=== PATIENT | female | born 1960 | race African-American/Black ===

== ENCOUNTER 2018-09-06 16:05 | Emergency (ER) | payer OTHER ==
[~2018-09-06] VITALS: Ht 152.4 cm; Wt 72.6 kg
[2018-09-06] MEDS ORDERED: WARFARIN SOD5 MG PO (16:22)
[2018-09-06] MEDS ORDERED: NORVASC5 MG PO (16:23)
[2018-09-06 16:47] LABS: BASO # 0.1 10*3/uL (0.0-0.1); BASO % 0.6 % (0.0-1.0); EOS # 0.1 10*3/uL (0.0-0.4); EOS % 0.9 % (1.0-4.0); HEMATOCRIT 41.1 % (37.0-47.0); HEMOGLOBIN 13.7 g/dl (12.0-16.0); LYMPH # 1.6 10*3/uL (1.3-4.4); LYMPH % 18.1 % (27.0-41.0); MEAN CELL VOLUME 87.6 fl (81.0-99.0); MEAN CORPUSCULAR HGB 29.2 pg (27.0-31.0); MEAN CORPUSCULAR HGB CONC 33.3 g/dl (33.0-37.0); MEAN PLATELET VOLUME 9.8 fl (9.6-12.3); MONO # 0.4 10*3/uL (0.1-1.0); NEUT # 6.4 10*3/uL (2.3-7.9); PLATELET COUNT AUTOMATED 239 10*3/uL (130-400); RED BLOOD COUNT 4.69 10*6/uL (4.10-5.10); RED CELL DISTRI WIDTH 13.5 % (0-14.5); WHITE BLOOD COUNT 8.6 10*3/uL (4.8-10.8)
[2018-09-06 17:02] LABS: ALBUMIN 3.7 gm/dl (3.1-4.5); ALKALINE PHOSPHATASE 80 U/L (45-117); BUN 11 mg/dl (7-24); CHLORIDE 110 mmol/L (98-107); CREATININE 1.07 mg/dL (0.55-1.02); LIPASE 82 U/L (73-393); POTASSIUM 3.4 mmol/L (3.5-5.1); SGOT/AST 33 IU/L (3-35); SGPT/ALT 30 U/L (12-78); SODIUM 143 mmol/L (136-145); TOTAL PROTEIN 7.6 gm/dL (6.4-8.2)
[2018-09-06 17:30] LABS: BILIRUBIN 1+ (NEGATIVE); BLOOD 3+ (NEGATIVE); CLARITY SL CLOUDY (CLEAR); COLOR YELLOW (YELLOW); GLUCOSE NEGATIVE (NEGATIVE); KETONE NEGATIVE (NEGATIVE); LEUKO ESTERASE TRACE (NEGATIVE); NITRITE NEGATIVE (NEGATIVE); PH 5.5 (5.0-9.0); SPECIFIC GRAVITY >= 1.030 (1.005-1.030)
[2018-09-06 17:41] LABS: BACTERIA 1+; MUCOUS 1+
[2018-09-06 17:42] LABS: CALCIUM OXALATE CRYSTALS 1+; RBC 41-50 rbc/hpf (0-2)
[2018-09-06] MEDS ORDERED: ZOFRAN ODT4 MG SL (17:51)
[2018-09-06] MEDS ORDERED: DICYCLOMINE HCL20 MG PO (17:51)
== END 2018-09-06 17:53 | disposition home or self-care (01) ==
LOC: ED 16:05
PROVIDERS: Nurse Practitioner Family
DX: K82.8 Other specified diseases of gallbladder (principal); K80.50 Calculus of bile duct without cholangitis or cholecystitis without obstruction; R79.1 Abnormal coagulation profile; Z79.01 Long term (current) use of anticoagulants; Z79.899 Other long term (current) drug therapy

== ENCOUNTER → 2018-09-08 | Outpatient (CLI) | payer OTHER ==
[~2018-09-08] MED LIST: AUGMENTIN 875875 MG PO; DICYCLOMINE HCL20 MG PO; ENOXAPARIN80 MG/0.2 SC; NORCO 5-325 TA1 EACH PO; NORVASC5 MG PO; TRAMADOL HCL50 MG PO; VICODIN 5-3001 EACH PO; VITAMIN D-32000 UNIT PO; WARFARIN SOD5 MG PO; ZOFRAN ODT4 MG SL
== END | disposition home or self-care (01) ==
LOC: RESCLI 03:30
DX: I10 Essential (primary) hypertension (principal); E66.9 Obesity, unspecified; K82.8 Other specified diseases of gallbladder; D68.8 Other specified coagulation defects; N28.1 Cyst of kidney, acquired; R11.2 Nausea with vomiting, unspecified; R92.8 Other abnormal and inconclusive findings on diagnostic imaging of breast; Z76.89 Persons encountering health services in other specified circumstances; Z79.01 Long term (current) use of anticoagulants; Z88.2 Allergy status to sulfonamides

== ENCOUNTER 2018-09-10 04:34 | Inpatient (IN) | payer OTHER ==
[2018-09-10] VITALS (8 sets, daily range): BP systolic 124–171; BP diastolic 56–89
[~2018-09-10] VITALS: Ht 152.4 cm; Wt 75.9 kg
[~2018-09-10 04:34] MED LIST changes: -AUGMENTIN 875875 MG PO; -ENOXAPARIN80 MG/0.2 SC; -NORCO 5-325 TA1 EACH PO; -TRAMADOL HCL50 MG PO; -VICODIN 5-3001 EACH PO; -VITAMIN D-32000 UNIT PO
[2018-09-10 05:10] LABS: BASO % 0.4 % (0.0-1.0); EOS % 0.4 % (1.0-4.0); HEMOGLOBIN 13.5 g/dl (12.0-16.0); LYMPH # 1.2 10*3/uL (1.3-4.4); LYMPH % 13.3 % (27.0-41.0); MEAN CORPUSCULAR HGB CONC 32.9 g/dl (33.0-37.0); MEAN PLATELET VOLUME 9.8 fl (9.6-12.3); MONO # 0.4 10*3/uL (0.1-1.0); MONO % 4.6 % (3.0-9.0); NEUT # 7.2 10*3/uL (2.3-7.9); NEUT % 81.1 % (47.0-73.0); PLATELET COUNT AUTOMATED 230 10*3/uL (130-400); RED BLOOD COUNT 4.66 10*6/uL (4.10-5.10); RED CELL DISTRI WIDTH 13.2 % (0-14.5); WHITE BLOOD COUNT 8.9 10*3/uL (4.8-10.8)
[2018-09-10 05:19] LABS: INTERNATIONAL NORM RATIO 1.8 (2.0-3.5)
[2018-09-10 05:27] LABS: ALBUMIN 3.5 gm/dl (3.1-4.5); ALKALINE PHOSPHATASE 73 U/L (45-117); BUN 7 mg/dl (7-24); CHLORIDE 108 mmol/L (98-107); CREATININE 0.79 mg/dL (0.55-1.02); LIPASE 69 U/L (73-393); POTASSIUM 3.7 mmol/L (3.5-5.1); SGOT/AST 14 IU/L (3-35); SGPT/ALT 20 U/L (12-78); SODIUM 142 mmol/L (136-145); TOTAL PROTEIN 7.3 gm/dL (6.4-8.2)
[2018-09-11] VITALS: BP 119/65
[2018-09-11 06:22] LABS: BASO % 0.3 % (0.0-1.0); EOS # 0.1 10*3/uL (0.0-0.4); EOS % 1.2 % (1.0-4.0); HEMATOCRIT 41.2 % (37.0-47.0); HEMOGLOBIN 13.7 g/dl (12.0-16.0); LYMPH # 2.1 10*3/uL (1.3-4.4); LYMPH % 23.9 % (27.0-41.0); MEAN CELL VOLUME 87.1 fl (81.0-99.0); MEAN CORPUSCULAR HGB CONC 33.3 g/dl (33.0-37.0); MONO # 0.5 10*3/uL (0.1-1.0); MONO % 5.6 % (3.0-9.0); NEUT # 6.2 10*3/uL (2.3-7.9); NEUT % 68.7 % (47.0-73.0); PLATELET COUNT AUTOMATED 241 10*3/uL (130-400); RED BLOOD COUNT 4.73 10*6/uL (4.10-5.10); RED CELL DISTRI WIDTH 13.2 % (0-14.5)
[2018-09-11 06:47] LABS: INTERNATIONAL NORM RATIO 2.4 (2.0-3.5)
[2018-09-11 06:49] LABS: ALBUMIN 3.5 gm/dl (3.1-4.5); BUN 11 mg/dl (7-24); CHLORIDE 107 mmol/L (98-107); CHOLESTEROL 132 mg/dL (<200); CREATININE 0.89 mg/dL (0.55-1.02); PHOSPHOROUS 2.9 mg/dL (2.5-4.9); POTASSIUM 3.6 mmol/L (3.5-5.1); SGOT/AST 18 IU/L (3-35); SGPT/ALT 20 U/L (12-78); SODIUM 139 mmol/L (136-145); TRIGLYCERIDES 101 mg/dl (<150); VLDL CHOLESTEROL 20 mg/dL (6-40)
[2018-09-11 06:56] LABS: ALKALINE PHOSPHATASE 77 U/L (45-117); FREE T4 1.27 ng/dl (0.76-1.46); HDL CHOLESTEROL 44 mg/dl (40-60); LDL CHOLESTEROL 68 mg/dL (9-159)
[2018-09-11 08:00] VITALS: BP 170/78
[2018-09-11] MEDS ORDERED: VICODIN 5-3001 EACH PO (11:12)
[2018-09-11] MEDS ORDERED: AUGMENTIN 875875 MG PO (11:12)
[2018-09-11] MEDS ORDERED: NORCO 5-325 TA1 EACH PO (13:55)
== END 2018-09-11 13:02 | disposition home or self-care (01) | DRG 445 ==
LOC: ED 04:34 → EDHOLD 06:42 → 4E 06:42
PROVIDERS: Family Medicine; Student in an Organized Health Care Education/Training Program
DX: K80.12 Calculus of gallbladder with acute and chronic cholecystitis without obstruction (principal); D68.52 Prothrombin gene mutation; I10 Essential (primary) hypertension; D72.828 Other elevated white blood cell count; R73.9 Hyperglycemia, unspecified; Z82.0 Family history of epilepsy and other diseases of the nervous system; Z79.01 Long term (current) use of anticoagulants; Z79.899 Other long term (current) drug therapy

== ENCOUNTER → 2018-09-14 | Outpatient (CLI) | payer OTHER ==
[~2018-09-14] MED LIST changes: +AUGMENTIN 875875 MG PO; +ENOXAPARIN80 MG/0.2 SC; +NORCO 5-325 TA1 EACH PO; +TRAMADOL HCL50 MG PO; +VICODIN 5-3001 EACH PO; +VITAMIN D-32000 UNIT PO
== END | disposition home or self-care (01) ==
LOC: NM 07:00
DX: K80.80 Other cholelithiasis without obstruction (principal); N28.1 Cyst of kidney, acquired; R11.2 Nausea with vomiting, unspecified; R92.8 Other abnormal and inconclusive findings on diagnostic imaging of breast

== ENCOUNTER → 2018-09-15 | Outpatient (CLI) | payer OTHER ==
[2018-09-15 13:11] LABS: INTERNATIONAL NORM RATIO 2.7 (2.0-3.5)
== END | disposition home or self-care (01) ==
LOC: LAB 12:13
PROVIDERS: Internal Medicine
DX: Z79.01 Long term (current) use of anticoagulants (principal)

== ENCOUNTER → 2018-09-26 | Outpatient (CLI) | payer OTHER | END | disposition home or self-care (01) | LOC: MAMMO 09-22 09:30 → US 09-22 13:00 → MAMMO 10:00 | DX: N28.1 Cyst of kidney, acquired (principal); N32.89 Other specified disorders of bladder ==

== ENCOUNTER 2018-09-28 05:40 | Inpatient (IN) | payer OTHER ==
[~2018-09-28] VITALS: Ht 152.4 cm; Wt 74.0 kg
--- NOTE | ~2018-09-28 | O ---
[place], [place] OPERATIVE NOTE NAME: MARIN WATTS UNIT #: [id number] ROOM: 412 DOCTOR: MARCO MONTERO MD BIRTHDATE: [birth year] DOS: 09/29/2018 PREOPERATIVE DIAGNOSIS: Symptomatic gallstones. POSTOPERATIVE DIAGNOSIS: Acute cholecystitis. PROCEDURE: Laparoscopic turned open cholecystectomy. SURGEON: Marco Montero MD. HOSPITAL TRAY SERVICE WORKER: TOBY. ANESTHESIA: General with endotracheal intubation. INDICATIONS: This is a 57-year-old lady who is here for a laparoscopic possible open cholecystectomy. The patient has symptomatic gallstones and was admitted a few months ago for acute cholecystitis. 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 The patient was admitted 1 day prior to surgery for bridging therapy. The procedure and its complications were explained to the patient in detail preoperatively. Complications that were discussed included, but were not limited to bleeding, infection, hematoma/seroma/abscess formation, prolonged postoperative pain, damage to lying vital structures, inadvertent injury to common bile duct, biloma formation and incisional hernia formation, she agreed to proceed. DESCRIPTION OF PROCEDURE: After identifying the patient, the patient was brought to the operating suite and laid in the supine position. After induction of general anesthesia, the parts were then painted and draped in the usual sterile fashion. A subumbilical incision in a transverse fashion was made. The skin and the subcutaneous tissue were incised in the line of the incision. The fascia was incised vertically and 2 stay sutures were taken on either side. The peritoneum was opened and a 12 mm Joanie port was introduced. Pneumoperitoneum was created. Under direct vision, an epigastric incision of 10 mm and two 5 mm incisions were made in the right upper quadrant and appropriate size ports were introduced. The gallbladder was found to be acutely inflamed and distended. Approximately, 30-40 mL of clear fluid was aspirated from the bile with the help of an aspiration needle. After the gallbladder was decompressed, it was retracted superiorly and laterally. There were a lot of chronic adhesions that were from the omentum and the surrounding structures from the gallbladder itself. The cystic duct and the cystic artery were carefully dissected until the critical view of safety was obtained. The cystic duct was clipped 3 times and cut between the first and the second clip. The cystic artery also was clipped 3 times and cut between the first and the second clip. The gallbladder was then removed from the bed of the gallbladder with the help of electrocautery. During the procedure of the removal, there was additional bleeding that was identified proximal to the area of the cystic artery that was clipped and cut prior to removal of the gallbladder from its gallbladder bed. Because of the acute inflammation around the gallbladder, an accurate assessment of the bleeding and the source could not be made and therefore, the procedure was turned to an open procedure. An incision was made in a subcostal manner [place], [place] OPERATIVE NOTE NAME: MARIN WATTS UNIT #: [id number] ROOM: [employer] DOCTOR: MARCO MONTERO MD BIRTHDATE: [birth year] which connected the epigastric incision to the rest of the incision that was made. It was deep in the layers until the peritoneum was opened. The liver bed was packed with the help of laparotomy pads and a Benicia retractor was placed for adequate retraction and visualization. Once the packs were removed, the bleeding source was identified and it was clamped and tied with the help of 3-0 Vicryl. At this point, the rest of the gallbladder was removed from the bed of the gallbladder and sent for histopathological diagnosis. During the procedure removal of the gallbladder, the clips that were placed on the cystic duct inadvertently fell off and therefore, the cystic duct opening was suture ligated with the help of 3-0 silk in a [id number] interrupted fashion. After adequate closure of the cystic duct opening was performed, hemostasis was confirmed again and copious amounts of saline was used for irrigation. Thereafter, the 15-Armenian round Frank-Parrish drain was brought in and placed in the liver bed and sutured to the overlying skin with the help of 3-0 nylon in an interrupted fashion. At this point, the subcostal incision was approximated with the help of looped PDS in a running fashion. The skin edges were approximated with the help of diego. The subumbilical incision that was made for the laparoscopic procedure was also approximated. This was first done by approximating the stay sutures and the skin edges were then approximated with the help of diego. At the end of the procedure, the patient received a block by the anesthesia team for pain control. She was then extubated uneventfully and brought back to the recovery room in stable fashion. Blood loss was 600 mL. There were no complications. Dr. Marco Montero, the attending surgeon, was present throughout the operating case. Marco Monteor MD CM:OPRECORD:OPERATIVE NOTE [id number] MARCO MONTERO MD 09/29/18 1304 interface
--- NOTE | ~2018-09-28 | EKG ---
[place], [place] ELECTROCARDIOGRAM REPORT NAME: MARIN WATTS UNIT #: [id number] ROOM: 412 DOCTOR: ABDIEL DRAFT REPORT BIRTHDATE: [birth year] [facility] Test Date: 2018-09-28 Test Time: 08:10:21 Pat Name: MARIN WATTS Department: Room: 412 2 Gender: F Steam Drier Tender: Michelle Bower : 1960 Requested By: CHUCKY STILL Order Number: [id number] Reading MD: Farooq Askew MD Measurements Intervals Glendo Rate: 74 P: 45 MO: 134 QRS: -27 QRSD: 83 T: 13 QT: 390 QTc: 433 Interpretive Statements Sinus rhythm Borderline left axis deviation Abnormal R-wave progression, early transition Electronically Signed On 09-28-2018 17:19:04 PDT by Farooq Askew MD CM:EKGRPT:ELECTROCARDIOGRAM REPORT [id number] CHUCKY PATTERSON DRAFT REPORT CHUCKY STILL DO
[~2018-09-28 05:40] MED LIST changes: -ENOXAPARIN80 MG/0.2 SC; -TRAMADOL HCL50 MG PO; -VITAMIN D-32000 UNIT PO
[2018-09-28 06:00] VITALS: BP 146/77
[2018-09-28 06:29] LABS: BASO # 0.1 10*3/uL (0.0-0.1); BASO % 0.7 % (0.0-1.0); EOS # 0.2 10*3/uL (0.0-0.4); EOS % 2.1 % (1.0-4.0); HEMATOCRIT 41.2 % (37.0-47.0); HEMOGLOBIN 13.6 g/dl (12.0-16.0); LYMPH # 1.8 10*3/uL (1.3-4.4); LYMPH % 24.3 % (27.0-41.0); MEAN CELL VOLUME 87.8 fl (81.0-99.0); MEAN PLATELET VOLUME 9.8 fl (9.6-12.3); MONO # 0.5 10*3/uL (0.1-1.0); MONO % 6.6 % (3.0-9.0); NEUT # 4.8 10*3/uL (2.3-7.9); PLATELET COUNT AUTOMATED 251 10*3/uL (130-400); RED BLOOD COUNT 4.69 10*6/uL (4.10-5.10); RED CELL DISTRI WIDTH 13.1 % (0-14.5); WHITE BLOOD COUNT 7.3 10*3/uL (4.8-10.8)
[2018-09-28 06:48] LABS: ACT PARTIAL THROMBO TIME 43.1 SECONDS (20.8-31.5); INTERNATIONAL NORM RATIO 3.5 (2.0-3.5)
[2018-09-28 06:50] LABS: ALBUMIN 3.6 gm/dl (3.1-4.5); ALKALINE PHOSPHATASE 90 U/L (45-117); BUN 10 mg/dl (7-24); CHLORIDE 106 mmol/L (98-107); CREATININE 0.95 mg/dL (0.55-1.02); PHOSPHOROUS 3.2 mg/dL (2.5-4.9); POTASSIUM 3.9 mmol/L (3.5-5.1); SGOT/AST 12 IU/L (3-35); SGPT/ALT 16 U/L (12-78); SODIUM 138 mmol/L (136-145); TOTAL PROTEIN 7.2 gm/dL (6.4-8.2)
[2018-09-28 08:00] VITALS: BP 120/72
[2018-09-28 12:00] VITALS: BP 122/67
[2018-09-28 16:00] VITALS: BP 133/65
[2018-09-28 19:22] LABS: INTERNATIONAL NORM RATIO 1.3 (2.0-3.5)
[2018-09-28 20:00] VITALS: BP 135/68
[2018-09-29] VITALS (9 sets, daily range): BP systolic 125–149; BP diastolic 56–80
[2018-09-29 06:32] LABS: BASO # 0.1 10*3/uL (0.0-0.1); BASO % 0.7 % (0.0-1.0); EOS # 0.1 10*3/uL (0.0-0.4); EOS % 1.9 % (1.0-4.0); HEMATOCRIT 40.5 % (37.0-47.0); LYMPH # 2.3 10*3/uL (1.3-4.4); LYMPH % 32.5 % (27.0-41.0); MEAN CORPUSCULAR HGB 28.6 pg (27.0-31.0); MEAN CORPUSCULAR HGB CONC 32.1 g/dl (33.0-37.0); MONO # 0.5 10*3/uL (0.1-1.0); MONO % 7.4 % (3.0-9.0); NEUT % 57.1 % (47.0-73.0); PLATELET COUNT AUTOMATED 239 10*3/uL (130-400); RED BLOOD COUNT 4.55 10*6/uL (4.10-5.10); RED CELL DISTRI WIDTH 13.2 % (0-14.5)
[2018-09-29 07:01] LABS: ALBUMIN 3.4 gm/dl (3.1-4.5); BUN 11 mg/dl (7-24); CHLORIDE 108 mmol/L (98-107); CREATININE 0.91 mg/dL (0.55-1.02); SGOT/AST 10 IU/L (3-35); SGPT/ALT 14 U/L (12-78); SODIUM 140 mmol/L (136-145)
[2018-09-29 07:02] LABS: ALKALINE PHOSPHATASE 84 U/L (45-117); TOTAL PROTEIN 6.8 gm/dL (6.4-8.2)
[2018-09-29 07:14] LABS: ACT PARTIAL THROMBO TIME 26.3 SECONDS (20.8-31.5)
[2018-09-29 10:53] LABS: HEMOGLOBIN 11.6 g/dl (12.0-16.0)
[2018-09-29 13:10] LABS: HEMATOCRIT 37.7 % (37.0-47.0); HEMOGLOBIN 12.4 g/dl (12.0-16.0); MEAN CELL VOLUME 89.3 fl (81.0-99.0); MEAN CORPUSCULAR HGB 29.4 pg (27.0-31.0); MEAN CORPUSCULAR HGB CONC 32.9 g/dl (33.0-37.0); MEAN PLATELET VOLUME 9.6 fl (9.6-12.3); PLATELET COUNT AUTOMATED 231 10*3/uL (130-400); RED BLOOD COUNT 4.22 10*6/uL (4.10-5.10); RED CELL DISTRI WIDTH 13.2 % (0-14.5); WHITE BLOOD COUNT 17.8 10*3/uL (4.8-10.8)
[2018-09-29 13:34] LABS: PLATELET SUFFICIENCY NORMAL (NORMAL); TOTAL CELLS COUNTED 100 #CELLS
[2018-09-29 13:36] LABS: ALBUMIN 3.1 gm/dl (3.1-4.5); ALKALINE PHOSPHATASE 81 U/L (45-117); BUN 11 mg/dl (7-24); CHLORIDE 108 mmol/L (98-107); CREATININE 1.12 mg/dL (0.55-1.02); POTASSIUM 3.7 mmol/L (3.5-5.1); SGOT/AST 69 IU/L (3-35); SGPT/ALT 40 U/L (12-78); SODIUM 139 mmol/L (136-145); TOTAL PROTEIN 6.3 gm/dL (6.4-8.2)
[2018-09-30] VITALS: BP 136/66
[2018-09-30 06:16] LABS: BASO % 0.1 % (0.0-1.0); HEMATOCRIT 33.1 % (37.0-47.0); LYMPH # 1.7 10*3/uL (1.3-4.4); LYMPH % 9.5 % (27.0-41.0); MEAN CORPUSCULAR HGB 29.3 pg (27.0-31.0); MEAN CORPUSCULAR HGB CONC 33.2 g/dl (33.0-37.0); MONO % 5.8 % (3.0-9.0); NEUT # 14.5 10*3/uL (2.3-7.9); NEUT % 83.8 % (47.0-73.0); PLATELET COUNT AUTOMATED 241 10*3/uL (130-400); RED BLOOD COUNT 3.76 10*6/uL (4.10-5.10); RED CELL DISTRI WIDTH 13.1 % (0-14.5); WHITE BLOOD COUNT 17.3 10*3/uL (4.8-10.8)
[2018-09-30 06:35] LABS: ALKALINE PHOSPHATASE 72 U/L (45-117); BUN 10 mg/dl (7-24); CHLORIDE 108 mmol/L (98-107); POTASSIUM 4.1 mmol/L (3.5-5.1); SGOT/AST 40 IU/L (3-35); SGPT/ALT 29 U/L (12-78); SODIUM 139 mmol/L (136-145); TOTAL PROTEIN 6.2 gm/dL (6.4-8.2)
[2018-09-30 06:41] LABS: INTERNATIONAL NORM RATIO 0.9 (2.0-3.5)
[2018-09-30 08:00] VITALS: BP 132/72
[2018-09-30 12:00] VITALS: BP 145/72
[2018-09-30 16:00] VITALS: BP 125/70
[2018-09-30 20:00] VITALS: BP 143/68
[2018-10-01] VITALS: BP 130/68
[2018-10-01 06:46] LABS: BASO # 0.1 10*3/uL (0.0-0.1); BASO % 0.5 % (0.0-1.0); EOS % 0.2 % (1.0-4.0); HEMATOCRIT 33.3 % (37.0-47.0); HEMOGLOBIN 10.8 g/dl (12.0-16.0); LYMPH # 1.9 10*3/uL (1.3-4.4); LYMPH % 17.6 % (27.0-41.0); MEAN CELL VOLUME 88.6 fl (81.0-99.0); MEAN CORPUSCULAR HGB 28.7 pg (27.0-31.0); MEAN CORPUSCULAR HGB CONC 32.4 g/dl (33.0-37.0); MEAN PLATELET VOLUME 10.3 fl (9.6-12.3); MONO # 0.8 10*3/uL (0.1-1.0); MONO % 7.4 % (3.0-9.0); NEUT # 7.8 10*3/uL (2.3-7.9); PLATELET COUNT AUTOMATED 211 10*3/uL (130-400); RED BLOOD COUNT 3.76 10*6/uL (4.10-5.10); RED CELL DISTRI WIDTH 13.2 % (0-14.5); WHITE BLOOD COUNT 10.6 10*3/uL (4.8-10.8)
[2018-10-01 06:53] LABS: INTERNATIONAL NORM RATIO 0.9 (2.0-3.5)
[2018-10-01 07:07] LABS: ALKALINE PHOSPHATASE 70 U/L (45-117); BUN 8 mg/dl (7-24); CHLORIDE 104 mmol/L (98-107); CREATININE 0.75 mg/dL (0.55-1.02); POTASSIUM 3.8 mmol/L (3.5-5.1); SGOT/AST 26 IU/L (3-35); SGPT/ALT 27 U/L (12-78); SODIUM 137 mmol/L (136-145); TOTAL PROTEIN 6.6 gm/dL (6.4-8.2)
[2018-10-01 12:00] VITALS: BP 139/68
[2018-10-01 16:00] VITALS: BP 125/68
[2018-10-01 20:00] VITALS: BP 119/60
[2018-10-02] VITALS: BP 139/63
[2018-10-02 12:00] VITALS: BP 121/67
[2018-10-02 16:00] VITALS: BP 139/77
[2018-10-02 20:00] VITALS: BP 133/72
[2018-10-03] VITALS: BP 125/67
[2018-10-03 06:33] LABS: INTERNATIONAL NORM RATIO 1.3 (2.0-3.5)
[2018-10-03 12:00] VITALS: BP 128/72
[2018-10-03 16:00] VITALS: BP 128/63
[2018-10-03 20:00] VITALS: BP 122/55
[2018-10-04] VITALS: BP 110/54
[2018-10-04 07:02] LABS: BASO % 0.4 % (0.0-1.0); EOS # 0.1 10*3/uL (0.0-0.4); EOS % 0.9 % (1.0-4.0); HEMATOCRIT 31.7 % (37.0-47.0); HEMOGLOBIN 10.3 g/dl (12.0-16.0); LYMPH # 1.7 10*3/uL (1.3-4.4); LYMPH % 18.6 % (27.0-41.0); MEAN CELL VOLUME 87.6 fl (81.0-99.0); MEAN CORPUSCULAR HGB 28.5 pg (27.0-31.0); MEAN CORPUSCULAR HGB CONC 32.5 g/dl (33.0-37.0); MEAN PLATELET VOLUME 9.7 fl (9.6-12.3); MONO # 0.6 10*3/uL (0.1-1.0); MONO % 7.2 % (3.0-9.0); NEUT # 6.5 10*3/uL (2.3-7.9); NEUT % 72.3 % (47.0-73.0); PLATELET COUNT AUTOMATED 222 10*3/uL (130-400); RED BLOOD COUNT 3.62 10*6/uL (4.10-5.10); RED CELL DISTRI WIDTH 13.2 % (0-14.5); WHITE BLOOD COUNT 8.9 10*3/uL (4.8-10.8)
[2018-10-04 07:14] LABS: INTERNATIONAL NORM RATIO 1.7 (2.0-3.5)
[2018-10-04 07:36] LABS: CREATININE 0.78 mg/dL (0.55-1.02)
[2018-10-04 08:00] VITALS: BP 120/55
[2018-10-04 12:00] VITALS: BP 121/51
[2018-10-04] MEDS ORDERED: VITAMIN D-32000 UNIT PO (13:38)
[2018-10-04] MEDS ORDERED: ENOXAPARIN80 MG/0.2 SC (13:44)
[2018-10-04 16:00] VITALS: BP 120/55
[2018-10-04] MEDS ORDERED: TRAMADOL HCL50 MG PO ×2 (17:44→17:47)
== END 2018-10-04 18:17 | disposition home health service (06) | DRG 415 ==
LOC: 4E 05:40
PROVIDERS: Internal Medicine; Internal Medicine Nephrology; Surgery
PROC: 0FT40ZZ Resection of Gallbladder, Open Approach (ICD-10-PCS; principal; 2018-09-29)
PROC: 0FJ44ZZ Inspection of Gallbladder, Percutaneous Endoscopic Approach (ICD-10-PCS; principal; 2018-09-29)
DX: K80.00 Calculus of gallbladder with acute cholecystitis without obstruction (principal); D68.52 Prothrombin gene mutation; E44.0 Moderate protein-calorie malnutrition; D68.59 Other primary thrombophilia; E66.1 Drug-induced obesity; I10 Essential (primary) hypertension; F17.210 Nicotine dependence, cigarettes, uncomplicated; E55.9 Vitamin D deficiency, unspecified; Z71.6 Tobacco abuse counseling; Z79.01 Long term (current) use of anticoagulants; Z79.899 Other long term (current) drug therapy; Z68.30 Body mass index [BMI] 30.0-30.9, adult; Z86.718 Personal history of other venous thrombosis and embolism; Z82.49 Family history of ischemic heart disease and other diseases of the circulatory system; Z82.0 Family history of epilepsy and other diseases of the nervous system; Z83.2 Family history of diseases of the blood and blood-forming organs and certain disorders involving the immune mechanism; Z88.2 Allergy status to sulfonamides

== ENCOUNTER → 2018-10-05 | Outpatient (CLI) | payer OTHER ==
[~2018-10-05] MED LIST changes: +ENOXAPARIN80 MG/0.2 SC; +TRAMADOL HCL50 MG PO; +VITAMIN D-32000 UNIT PO
[2018-10-05 12:25] LABS: INTERNATIONAL NORM RATIO 2.4 (2.0-3.5)
== END | disposition home or self-care (01) ==
LOC: LAB 11:18
PROVIDERS: Internal Medicine
DX: D68.59 Other primary thrombophilia (principal); D68.2 Hereditary deficiency of other clotting factors

== ENCOUNTER → 2018-10-12 | Outpatient (CLI) | payer OTHER | END | disposition home or self-care (01) | LOC: RESCLI 08:06 | DX: I10 Essential (primary) hypertension (principal); E66.9 Obesity, unspecified; K82.8 Other specified diseases of gallbladder; R11.2 Nausea with vomiting, unspecified; R10.11 Right upper quadrant pain; D68.8 Other specified coagulation defects; N28.1 Cyst of kidney, acquired; R92.8 Other abnormal and inconclusive findings on diagnostic imaging of breast; E55.9 Vitamin D deficiency, unspecified; Z79.01 Long term (current) use of anticoagulants; Z79.899 Other long term (current) drug therapy; Z88.2 Allergy status to sulfonamides ==

== ENCOUNTER → 2019-05-26 | Outpatient (CLI) | payer OTHER | END | disposition home or self-care (01) | LOC: RAD 09:48 | DX: M25.552 Pain in left hip (principal) ==

== ENCOUNTER → 2020-05-09 | Outpatient (CLI) | payer OTHER | END | disposition home or self-care (01) | LOC: US 01:09 → MAMMO 09:30 | DX: Z12.31 Encounter for screening mammogram for malignant neoplasm of breast (principal); K76.0 Fatty (change of) liver, not elsewhere classified; N28.1 Cyst of kidney, acquired; R16.0 Hepatomegaly, not elsewhere classified; Z90.49 Acquired absence of other specified parts of digestive tract ==

== ENCOUNTER → 2020-06-07 | Outpatient (CLI) | payer OTHER ==
[~2020-06-07] MED LIST changes: +COLACE100 MG PO; +COUMADIN7.5 M1 PO; +ENOXAPARIN100 MG/1 M SC; +HYDROCODONE-AC1 EAC1 PO
== END | disposition home or self-care (01) ==
LOC: COVID19 02:04
DX: Z01.818 Encounter for other preprocedural examination (principal); Z11.59 Encounter for screening for other viral diseases

== ENCOUNTER 2020-06-13 04:31 | Observation (INO) | payer OTHER ==
[2020-06-10 13:26] VITALS: BP 135/67
[~2020-06-13] VITALS: Ht 152.4 cm; Wt 83.5 kg
[2020-06-13] VITALS (9 sets, daily range): BP systolic 131–180; BP diastolic 65–86
[~2020-06-13 04:31] MED LIST changes: -COLACE100 MG PO; -ENOXAPARIN100 MG/1 M SC; -HYDROCODONE-AC1 EAC1 PO
[2020-06-14] VITALS: BP 141/67
[2020-06-14 06:41] LABS: BASO % 0.2 % (0.0-1.0); HEMATOCRIT 39.9 % (37.0-47.0); LYMPH # 1.9 10*3/uL (1.3-4.4); LYMPH % 10.7 % (27.0-41.0); MEAN CELL VOLUME 88.3 fl (81.0-99.0); MEAN CORPUSCULAR HGB 28.5 pg (27.0-31.0); MEAN CORPUSCULAR HGB CONC 32.3 g/dl (33.0-37.0); MEAN PLATELET VOLUME 10.2 fl (9.6-12.3); MONO # 1.2 10*3/uL (0.1-1.0); MONO % 6.8 % (3.0-9.0); NEUT # 14.1 10*3/uL (2.3-7.9); NEUT % 81.8 % (47.0-73.0); PLATELET COUNT AUTOMATED 258 10*3/uL (130-400); RED BLOOD COUNT 4.52 10*6/uL (4.10-5.10); RED CELL DISTRI WIDTH 13.2 % (0-14.5); WHITE BLOOD COUNT 17.3 10*3/uL (4.8-10.8)
[2020-06-14 07:06] LABS: ALBUMIN 3.3 gm/dl (3.1-4.5); ALKALINE PHOSPHATASE 78 U/L (45-117); BUN 12 mg/dl (7-24); CHLORIDE 107 mmol/L (98-107); CREATININE 0.89 mg/dL (0.55-1.02); POTASSIUM 4.1 mmol/L (3.5-5.1); SGOT/AST 19 IU/L (3-35); SGPT/ALT 16 U/L (12-78); SODIUM 136 mmol/L (136-145); TOTAL PROTEIN 7.1 gm/dL (6.4-8.2)
[2020-06-14 08:00] VITALS: BP 168/81
[2020-06-14 12:00] VITALS: BP 157/82
[2020-06-14 16:00] VITALS: BP 164/86
[2020-06-14 20:00] VITALS: BP 159/75
[2020-06-15] VITALS: BP 158/83
[2020-06-15 06:49] LABS: INTERNATIONAL NORM RATIO 1.1 (2.0-3.5)
[2020-06-15 08:00] VITALS: BP 140/84
[2020-06-15] MEDS ORDERED: ENOXAPARIN100 MG/1 M SC (09:17)
[2020-06-15] MEDS ORDERED: HYDROCODONE-AC1 EAC1 PO (09:17)
[2020-06-15] MEDS ORDERED: COLACE100 MG PO (09:18)
[2020-06-15 12:00] VITALS: BP 132/76
== END 2020-06-15 14:08 | disposition home or self-care (01) ==
LOC: SDC 04:31 → 5E 13:05 → SDC 13:15 → 5E 06-15 14:08
PROVIDERS: Internal Medicine; Nurse Anesthetist, Certified Registered; Surgery; ADMIT Student in an Organized Health Care Education/Training Program
DX: K43.0 Incisional hernia with obstruction, without gangrene (principal); F17.210 Nicotine dependence, cigarettes, uncomplicated; D68.52 Prothrombin gene mutation; I10 Essential (primary) hypertension; R00.0 Tachycardia, unspecified; Z68.35 Body mass index [BMI] 35.0-35.9, adult; N28.1 Cyst of kidney, acquired; Z79.01 Long term (current) use of anticoagulants; R65.10 Systemic inflammatory response syndrome (SIRS) of non-infectious origin without acute organ dysfunction

== ENCOUNTER 2021-10-11 14:15 | Emergency (ER) | payer OTHER ==
[~2021-10-11] VITALS: Ht 152.4 cm; Wt 72.6 kg
[~2021-10-11 14:15] MED LIST changes: +COLACE100 MG PO; +ENOXAPARIN100 MG/1 M SC; +HYDROCODONE-AC1 EAC1 PO
[2021-10-11 14:49] LABS: BASO # 0.1 10*3/uL (0.0-0.1); BASO % 0.6 % (0.0-1.0); EOS # 0.1 10*3/uL (0.0-0.4); EOS % 1.3 % (1.0-4.0); HEMATOCRIT 45.4 % (37.0-47.0); LYMPH % 28.6 % (27.0-41.0); MEAN CELL VOLUME 89.9 fl (81.0-99.0); MEAN CORPUSCULAR HGB 29.5 pg (27.0-31.0); MEAN CORPUSCULAR HGB CONC 32.8 g/dl (33.0-37.0); MEAN PLATELET VOLUME 9.3 fl (9.6-12.3); MONO # 0.6 10*3/uL (0.1-1.0); MONO % 5.6 % (3.0-9.0); NEUT # 6.6 10*3/uL (2.3-7.9); NEUT % 63.6 % (47.0-73.0); PLATELET COUNT AUTOMATED 275 10*3/uL (130-400); RED BLOOD COUNT 5.05 10*6/uL (4.10-5.10); WHITE BLOOD COUNT 10.3 10*3/uL (4.8-10.8)
[2021-10-11 15:02] LABS: ACT PARTIAL THROMBO TIME 37.6 SECONDS (20.0-32.1); INTERNATIONAL NORM RATIO 1.8 (2.0-3.5)
[2021-10-11 15:04] LABS: ALBUMIN 3.9 gm/dl (3.1-4.5); ALKALINE PHOSPHATASE 85 U/L (45-117); BUN 12 mg/dl (7-24); CHLORIDE 107 mmol/L (98-107); CREATININE 1.09 mg/dL (0.55-1.02); POTASSIUM 4.2 mmol/L (3.5-5.1); SGOT/AST 11 IU/L (3-35); SGPT/ALT 18 U/L (12-78); SODIUM 138 mmol/L (136-145); TOTAL PROTEIN 7.9 gm/dL (6.4-8.2)
[2021-10-11] MEDS ORDERED: VIBRAMYCIN100 MG PO (16:11)
== END 2021-10-11 16:20 | disposition home or self-care (01) ==
LOC: ED 14:15
PROVIDERS: Physician Assistant
DX: L03.114 Cellulitis of left upper limb (principal); Z88.2 Allergy status to sulfonamides; Z79.899 Other long term (current) drug therapy

== ENCOUNTER → 2023-01-13 | Outpatient (CLI) | payer OTHER ==
[~2023-01-13] MED LIST changes: +VIBRAMYCIN100 MG PO
== END | disposition home or self-care (01) ==
LOC: RAD 10:27
PROVIDERS: ATTEND Chiropractor
DX: M54.2 Cervicalgia (principal)

== ENCOUNTER → 2024-02-08 | Outpatient (CLI) | payer OTHER | END | disposition home or self-care (01) | LOC: US 12:17 | PROVIDERS: ATTEND Family Medicine | DX: N18.30 Chronic kidney disease, stage 3 unspecified (principal); N28.1 Cyst of kidney, acquired ==

== ENCOUNTER → 2024-05-11 | Outpatient (CLI) | payer OTHER | END | disposition home or self-care (01) | LOC: MAMMO 09:19 | PROVIDERS: ATTEND Family Medicine | DX: Z12.31 Encounter for screening mammogram for malignant neoplasm of breast (principal) ==

== ENCOUNTER → 2025-02-08 | Outpatient (CLI) | payer OTHER | END | disposition home or self-care (01) | LOC: RAD 08:50 | PROVIDERS: ATTEND Chiropractor | DX: M79.89 Other specified soft tissue disorders (principal); M25.572 Pain in left ankle and joints of left foot; M79.672 Pain in left foot ==